=== PATIENT | female | born 1950 | race Two or more races ===

== ENCOUNTER 2019-03-13 20:34 | Emergency (ER) | payer SELFPAY ==
[~2019-03-13] VITALS: Ht 154.9 cm; Wt 93.4 kg
[2019-03-13 20:46] VITALS: Ht 154.9 cm; Wt 93.4 kg
[2019-03-14 01:07] VITALS: BP 135/99
== END 2019-03-14 01:07 | disposition home or self-care (01) ==
LOC: ED 20:34
DX: S09.8XXA Other specified injuries of head, initial encounter (principal); S40.012A Contusion of left shoulder, initial encounter; S59.902A Unspecified injury of left elbow, initial encounter; S89.92XA Unspecified injury of left lower leg, initial encounter; M54.2 Cervicalgia; M79.652 Pain in left thigh; Z88.8 Allergy status to other drugs, medicaments and biological substances; Z91.018 Allergy to other foods; V43.52XA Car driver injured in collision with other type car in traffic accident, initial encounter; Y93.I9 Activity, other involving external motion; Y92.488 Other paved roadways as the place of occurrence of the external cause; Y99.8 Other external cause status
CPT/HCPCS: Q0092

== ENCOUNTER 2019-03-15 12:45 | Emergency (ER) | payer OTHER ==
[~2019-03-15] VITALS: Ht 154.9 cm; Wt 90.7 kg
[2019-03-15 13:07] VITALS: Ht 154.9 cm; Wt 90.7 kg
[2019-03-15 15:24] VITALS: BP 132/80
== END 2019-03-15 15:24 | disposition home or self-care (01) ==
LOC: ED 12:45
DX: S09.8XXA Other specified injuries of head, initial encounter (principal); X58.XXXD Exposure to other specified factors, subsequent encounter; Z88.8 Allergy status to other drugs, medicaments and biological substances; Z91.018 Allergy to other foods